=== PATIENT | female | born 1950 | race Hispanic/Latino ===

== ENCOUNTER → 2025-02-16 | Outpatient (CLI) | payer OTHER ==
[~2025-02-16] MED LIST: GADOTERATE MEGLUMINE 10 MMOL/20 ML VIAL IV ONE
--- NOTE | 2025-02-17 05:37 | HMCIMG ---
EXAM: MR Brain Without and With IV Contrast CLINICAL HISTORY: Unspecified dementia. TECHNIQUE: Multiplanar multi-sequence MRI of the brain. CONTRAST: 17 mm Clariscan. COMPARISON: None provided. FINDINGS: There are multiple discrete T2-weighted and flair hyperintense signal intensities in bilateral subcortical and periventricular white matter. No evidence of acute cortical infarction, hemorrhage, mass, or mass effect. The ventricular system, sulci, and cisterns appear mildly prominent. No hydrocephalus. No abnormal extra-axial fluid collection is present. The marrow signal within the skull base and calvarium is intact. The paranasal sinuses and mastoid air cells are clear. IMPRESSION: 1. Multiple discrete T2-weighted and flair hyperintense signal intensities in bilateral subcortical and periventricular white matter. No abnormal postcontrast enhancement. Differential includes foci of chronic demyelination versus ischemic changes. /Hector
== END | disposition home or self-care (01) ==
LOC: RAH 11:38
PROVIDERS: ATTEND Family Medicine
DX: G98.8 Other disorders of nervous system (principal); F03.90 Unspecified dementia, unspecified severity, without behavioral disturbance, psychotic disturbance, mood disturbance, and anxiety
CPT/HCPCS: 70553; A9575